=== PATIENT | male | born 1945 | race Caucasian/White ===

== ENCOUNTER 2017-04-08 23:50 | Inpatient (IN) | payer MEDICARE, BC ==
[~2017-04-08] VITALS: Ht 175.3 cm; Wt 77.1 kg
--- NOTE | 2017-04-09 00:09 | NUR ---
BIBSELF, AMBULATORY TO ER BED 1 PT C/O PALPITATIONS X 45 MINS AGO. DENIES CP/ SOB. PT AOX3 RR EVEN AND UNLABORED. NO SOB NOTED. NAD NOTED. NO NVD AT THIS TIME. PT GOWNED AND PLACED ON MONITOR WAITING FOR MD ALTAMIRANO.
--- NOTE | 2017-04-09 00:20 | NUR ---
DR. ELLIOTT AT BEDSIDE. PT NOTED SR ON THE MONITOR. MD MARSH
[2017-04-09] MEDS ORDERED: ASPIRIN 81 MG TAB.CHEW ONE (00:28)
--- NOTE | 2017-04-09 00:29 | NUR ---
PT REFUSED MEDICATION. PT STATES " I TOOK ASA 81, 4-5 PILLS BEFORE I CAME HERE" DR. ELLIOTT MADE AWARE
[2017-04-09] MEDS ORDERED: ASPIRIN 81 MG TAB.CHEW PO ONE (00:30)
--- NOTE | 2017-04-09 00:31 | NUR ---
RADIOLIOGY AT BEDSIDE FOR CXR
--- NOTE | 2017-04-09 00:35 | NUR ---
ASSIGNED TELE BED 323-2
[2017-04-09 00:36] LABS: BASOPHILS # (AUTO) 0.1 /CMM (0.0-0.2); BASOPHILS % (AUTO) 0.9 % (0.0-2.0); EOSINOPHILS # (AUTO) 0.2 /CMM (0.0-0.7); EOSINOPHILS % (AUTO) 2.3 % (0.0-6.0); HEMATOCRIT 49 % (39-51); HEMOGLOBIN 16.4 g/dL (13.5-17.5); LYMPHOCYTES # (AUTO) 1.5 /CMM (0.8-4.8); LYMPHOCYTES % (AUTO) 22.6 % (20.0-44.0); MEAN CORPUSCULAR HEMOGLOBIN 30 PG (26.0-33.0); MEAN CORPUSCULAR HGB CONC 33 g/dl (31.0-36.0); MEAN CORPUSCULAR VOLUME 91 fL (80-96); MONOCYTES # (AUTO) 0.7 /CMM (0.1-1.30); MONOCYTES % (AUTO) 10.8 % (2.0-12.0); NEUTROPHILS # (AUTO) 4.3 /CMM (1.8-8.9); NEUTROPHILS % (AUTO) 63.4 % (43.0-81.0); PLATELET COUNT (AUTO) 292 /CMM (150-450); RDW COEFFICIENT OF VARIATION 13.1 (11.5-15.0); RED BLOOD CELL COUNT(AUTO) 5.41 MIL/uL (4.5-6.0); WHITE BLOOD COUNT (AUTO) 6.7 K/uL (4.3-11.0)
[2017-04-09 00:49] LABS: CALCIUM, SERUM 9.2 mg/dL (8.5-10.1); CARBON DIOXIDE 27 mmol/L (21-32); CHLORIDE 105 mmol/L (98-107); CREATININE 1.1 mg/dL (0.6-1.3); GLUCOSE 131 mg/dL (74-106); POTASSIUM 3.7 mmol/L (3.5-5.1); SODIUM SERUM 144 mmol/L (136-145); UREA NITROGEN, BLOOD 25 mg/dL (7-18)
[2017-04-09 00:55] LABS: INR 0.96 (0.87-1.13); PARTIAL THROMBOPLASTIN TIME 27 SEC (23-34); PROTHROMBIN TIME 10.2 SECS (9.5-12.7)
[2017-04-09 00:56] LABS: D-DIMER < 0.19 mg/L(FEU (0.17-0.50)
[2017-04-09 01:01] LABS: TROPONIN I < 0.017 ng/mL (0.00-0.056)
[2017-04-09 01:08] LABS: THYROID STIMULATING HORMONE 1.537 uIU/mL (0.358-3.74)
--- NOTE | 2017-04-09 01:30 | NUR ---
REPROT GIVEN TO MARK GONZALEZ.
[2017-04-09] MEDS ORDERED: EZET10TA PO (02:12)
[2017-04-09] MEDS ORDERED: ASPI-605 PO (02:12)
[2017-04-09] MEDS ORDERED: LISI-603 PO (02:12)
[2017-04-09] MEDS ORDERED: BRIM5DRO3 EACHEYE (02:12)
[2017-04-09] MEDS ORDERED: BRIN10DR EACHEYE (02:12)
[2017-04-09] MEDS ORDERED: BRIN10DR OP (02:12)
[2017-04-09] MEDS ORDERED: ATOR10TA PO (02:12)
[2017-04-09] MEDS ORDERED: TIMO5DRO4 EACHEYE (02:12)
[2017-04-09] MEDS ORDERED: LATA2.5D7 EACHEYE (02:12)
[2017-04-09] MEDS ORDERED: METO25TA6 PO (02:12)
--- NOTE | 2017-04-09 02:12 | NUR ---
DR. ELLIOTT SPOKE TO DR. CAROLE MATTHEWS REGARDING ADMISSION.
--- NOTE | 2017-04-09 02:28 | NUR ---
PT TRANSFERED PER [facility] PROTOCOL.
[2017-04-09 02:30] VITALS: BP 137/87
[2017-04-09] MEDS ORDERED: Z GUARD REMEDY 2 OZ OINT TP PRN (03:00)
[2017-04-09] MEDS ORDERED: ENOXAPARIN SODIUM 40 MG/0.4 ML DISP.SYRIN SQ SCH ×2 (03:00→07:54)
[2017-04-09] MEDS ORDERED: ACETAMINOPHEN 325 MG TABLET PO PRN (03:00)
[2017-04-09] MEDS ORDERED: ONDANSETRON HCL/PF 4 MG/2 ML VIAL IVP PRN (03:00)
--- NOTE | 2017-04-09 03:39 | NUR ---
[facility]. PATIENT WAS AWAKE, ALERT, ORIENTED, COMFORTABLE, NO C/O PAIN, NO DISTRESS NOTED, ADMISSION DONE PER PROTOCOL, PLAN OF CARE DISCUSSED WITH THE PATIENT. PLACED CALL LIGHT IN REACH. WILL MONITOR.
[2017-04-09] MEDS ORDERED: ENOXAPARIN SODIUM 40 MG/0.4 ML DISP.SYRIN SQ ONE (04:03)
[2017-04-09] MEDS ORDERED: METOPROLOL TARTRATE 50 MG TABLET ONE (04:03)
[2017-04-09] MEDS: METOPROLOL TARTRATE 50 MG TABLET PO SCH ×2 (04:20→08:27)
[2017-04-09 06:47] LABS: BASOPHILS % (AUTO) 0.4 % (0.0-2.0); EOSINOPHILS # (AUTO) 0.1 /CMM (0.0-0.7); EOSINOPHILS % (AUTO) 2.3 % (0.0-6.0); HEMATOCRIT 43 % (39-51); HEMOGLOBIN 14.5 g/dL (13.5-17.5); LYMPHOCYTES # (AUTO) 1.5 /CMM (0.8-4.8); MEAN CORPUSCULAR HEMOGLOBIN 31 PG (26.0-33.0); MEAN CORPUSCULAR HGB CONC 34 g/dl (31.0-36.0); MEAN CORPUSCULAR VOLUME 91 fL (80-96); MONOCYTES # (AUTO) 0.8 /CMM (0.1-1.30); MONOCYTES % (AUTO) 13.9 % (2.0-12.0); NEUTROPHILS # (AUTO) 3.6 /CMM (1.8-8.9); NEUTROPHILS % (AUTO) 58.4 % (43.0-81.0); PLATELET COUNT (AUTO) 267 /CMM (150-450); RDW COEFFICIENT OF VARIATION 13.9 (11.5-15.0); RED BLOOD CELL COUNT(AUTO) 4.72 MIL/uL (4.5-6.0); WHITE BLOOD COUNT (AUTO) 6.1 K/uL (4.3-11.0)
--- NOTE | 2017-04-09 06:52 | NUR ---
TELE/RN PATIENT IS AWAKE AT THIS TIME, COMFORTABLE, NO C/O PAIN, NO CHANGE IN CONDITION. ALL NEEDS ATTENDED AT THIS TIME. WILL CONTINUE TO MONITOR.
[2017-04-09 06:59] LABS: CALCIUM, SERUM 8.5 mg/dL (8.5-10.1); CARBON DIOXIDE 25 mmol/L (21-32); CHLORIDE 108 mmol/L (98-107); CREATININE 0.9 mg/dL (0.6-1.3); GLUCOSE 116 mg/dL (74-106); PHOSPHORUS 3.5 mg/dL (2.5-4.9); POTASSIUM 3.9 mmol/L (3.5-5.1); SODIUM SERUM 144 mmol/L (136-145); UREA NITROGEN, BLOOD 25 mg/dL (7-18)
[2017-04-09 07:02] LABS: TROPONIN I 0.022 ng/mL (0.00-0.056)
[2017-04-09] MEDS ORDERED: PNEUMOCOCCAL 23-VAL P-SAC VAC 0.5 ML VIAL SQ ONE ×2 (07:30→14:30)
--- NOTE | 2017-04-09 07:51 | NUR ---
MS/RN OPENING NOTE PATIENT RECEIVED IN BED IN STABLE CONDITION. ALERT AND ORIENTED TIMES 4. NO SIGNS OF ACUTE DISTRESS. NO COMPLAIN OF PAIN OR DISCOMFORT. ALL NEEDS ATTENDED TO. CALL LIGHT WITHIN REACH. WILL CONTINUE TO MONITOR TO ENSURE SAFETY.
--- NOTE | 2017-04-09 08:08 | NUR ---
MS/RN CLARIFICATION OF ORDERS RECEIVED CALL FROM PHARMACY PER [facility] TO COMPLETER INTERVENTIONS PRIOR PNEUMOCOCCAL VACCINE AND CLARIFY [employer] ORDER. INTERVENTIONS PRIOR TO PNEUMOCOCCAL VACCINE COMPLETED. [employer] ORDER CLARIFY TO BE GIVEN ONCE EVERY MORNING.
[2017-04-09 08:20] VITALS: BP 123/79
--- NOTE | 2017-04-09 08:29 | NUR ---
MS/RN LOPRESSOR NON ADMIN LOPRESSOR 50MG NOT GIVEN DUE TO HR <60 56
[2017-04-09] MEDS ORDERED: ASPIRIN EC 81 MG TABLET.DR PO SCH (09:00)
[2017-04-09] MEDS ORDERED: BRINZOLAMIDE 1 % OPHTH SOLN 10 ML BOTTLE EACHEYE SCH (09:00)
[2017-04-09] MEDS ORDERED: LISINOPRIL (20MG) 20 MG TABLET PO SCH (09:00)
[2017-04-09] MEDS ORDERED: EZETIMIBE 10 MG TABLET PO SCH (09:00)
[2017-04-09] MEDS ORDERED: TIMOLOL 0.5% SOLN OPHTH 5 ML BOTTLE EACHEYE SCH (09:00)
[2017-04-09] MEDS ORDERED: BRINZOLAMIDE 1 % OPHTH SOLN 10 ML BOTTLE OP SCH (09:00)
[2017-04-09] MEDS: DORZOLAMIDE OPTH 2% 10 ML BOTTLE EACHEYE SCH ×2 (11:43→12:43)
[2017-04-09 12:00] VITALS: BP 127/76
--- NOTE | 2017-04-09 12:30 | NUR ---
MS/RN DR NAIMA MCNAMARA PAGED BY EXCHANGE AWAITING FOR CALL BACK
--- NOTE | 2017-04-09 13:15 | NUR ---
MS/RN DR. MCNAMARA PAGED BY EXCHANGE. AWAITING FOR CALL BACK.
--- NOTE | 2017-04-09 14:49 | NUR ---
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 ALERT AND ORIENTED TIMES 4. NO SIGNS OF ACUTE DISTRESS, NO COMPLAIN OF PAIN OR DISCOMFORT. PUNEUMOCOCCAL VACCINE ADMINISTERED, TOLERATED WELL. ID BAND REMOVED, IV SITE REMOVED. DISCHARGE EDUCATION PROVIDED, AND FOLLOW UP WITH PRIMARY PHYSICIAN AND CAR PUSHER. VERBALIZED UNDERSTANDING OF TEACHING.
[2017-04-09] MEDS ORDERED: ATORVASTATIN 10 MG TABLET PO SCH (18:00)
[2017-04-09] MEDS ORDERED: LATANOPROST EYE DROP 0.005% 2.5 ML BOTTLE EACHEYE SCH (18:00)
== END 2017-04-09 14:50 | disposition home or self-care (01) | DRG 308 ==
LOC: ER 23:52 → TELE 04-09 01:11
PROVIDERS: ADMIT Nurse Practitioner Acute Care; ATTEND Nurse Practitioner Acute Care
DX: I48.0 Paroxysmal atrial fibrillation (principal); I50.31 Acute diastolic (congestive) heart failure; D68.59 Other primary thrombophilia; I25.10 Atherosclerotic heart disease of native coronary artery without angina pectoris; I25.2 Old myocardial infarction; Z98.61 Coronary angioplasty status; I11.0 Hypertensive heart disease with heart failure; R73.9 Hyperglycemia, unspecified
CPT/HCPCS: 36415; 71010-TC; 80048-TC; 83735-TC; 84100-TC; 84439-TC; 84443-TC; 84484-TC; 85025-TC; 85378-TC; 85730-TC; 87081-TC; 90732; 93307-TC; A4606; J1650; Z7610